=== PATIENT | female | born 1995 | race Caucasian/White ===

== ENCOUNTER 2021-10-06 18:28 | Inpatient (IN) | payer BC ==
[~2021-10-06] VITALS: Ht 167.6 cm; Wt 99.8 kg
[2021-10-06 21:22] LABS: HEMOGLOBIN 11.4 gm/dl (12.3-15.3); RED BLOOD COUNT 4.24 M/UL (4.00-5.10); WHITE BLOOD COUNT 12.2 K/UL (4.5-11.0)
[2021-10-07] MEDS ORDERED: HEMOCYTE324 MG PO (03:09)
[2021-10-07] MEDS ORDERED: IBUPROFEN800 MG PO (03:09)
[2021-10-07] MEDS ORDERED: COLACE100 MG PO (03:09)
[2021-10-08 04:41] LABS: HEMOGLOBIN 10.1 gm/dl (12.3-15.3)
== END 2021-10-08 19:15 | disposition home or self-care (01) | DRG 807 ==
LOC: GENOP 18:28 → CDU 21:54 → OB 10-07 04:45
PROVIDERS: ADMIT Obstetrics & Gynecology
PROC: 4A1HXCZ Monitoring of Products of Conception, Cardiac Rate, External Approach (ICD-10-PCS; 2021-10-06)
PROC: 10E0XZZ Delivery of Products of Conception, External Approach (ICD-10-PCS; principal; 2021-10-07)
DX: O69.1XX0 Labor and delivery complicated by cord around neck, with compression, not applicable or unspecified (principal); Z37.0 Single live birth; Z3A.40 40 weeks gestation of pregnancy; Z20.822 Contact with and (suspected) exposure to COVID-19; Z83.3 Family history of diabetes mellitus; Z88.8 Allergy status to other drugs, medicaments and biological substances; Z28.310 Unvaccinated for COVID-19; Z88.1 Allergy status to other antibiotic agents; Z88.0 Allergy status to penicillin
CPT/HCPCS: 36415; 85014; 85018; 85025; G0378; J2590; U0002